=== PATIENT | female | born 1995 | race Caucasian/White ===

== ENCOUNTER 2019-12-16 12:12 | Outpatient (CLI) | payer OTHER ==
--- NOTE | 2019-12-16 17:15 | Consultation ---
DATE OF CONSULTATION: 12/16/2019 CONSULTING PHYSICIAN: Christiano Malloy MD CHIEF COMPLAINT: Rectal pain. HISTORY OF PRESENT ILLNESS: This is a 24-year-old female who was referred to us for evaluation of hemorrhoids. PAST MEDICAL HISTORY: Asthma. PAST SURGICAL HISTORY: None. MEDICATIONS: Wellbutrin. FAMILY HISTORY: Mother has MS. SOCIAL HISTORY: Patient denies any tobacco, alcohol, or drug abuse. ALLERGIES: No known drug allergies. REVIEW OF SYSTEMS: A 10-point review of systems performed and was negative. PHYSICAL EXAMINATION: VITAL SIGNS: Temperature 97.6. Vital signs are stable. HEENT: Normocephalic, atraumatic. Sclerae are anicteric. NECK: Supple. No evidence of obvious lymphadenopathy. CARDIOVASCULAR: Regular rate and rhythm. Plus S1-S2. LUNGS: Clear to auscultation bilaterally. ABDOMEN: Positive bowel sounds. Soft and nontender. No rebound. No guarding. No peritoneal sign. EXTREMITIES: No cyanosis, no clubbing, no edema. ASSESSMENT AND PLAN: This is a 24-year-old female with external hemorrhoids. Patient was given treatment for hemorrhoids including Anusol-HC, sitz baths, but patient wants to be referred to Surgery for hemorrhoidectomy. Patient was advised to call the primary care physician and to get an appointment with the colorectal surgeon for hemorrhoidectomy. Christiano Malloy M.D. DR: NURIA JOB#: [id number] CC:
== END 2019-12-16 15:18 | disposition home or self-care (01) ==
LOC: PAN 12:12
DX: K62.89 Other specified diseases of anus and rectum (principal); K64.9 Unspecified hemorrhoids
CPT/HCPCS: G0463